=== PATIENT | male | born 1965 | race Caucasian/White ===

== ENCOUNTER → 2019-11-22 08:00 | Outpatient (CLI) | payer OTHER, MEDICAID, SELFPAY ==
--- NOTE | 2019-11-22 | DI.US.S_ITS ---
PROCEDURE: US SCROTUM INDICATIONS: SCROTAL SWELLING AND PAIN TECHNIQUE: Real-time scanning was performed of the scrotum and testicles, with image documentation. Color and pulse Doppler interrogation was performed of both testicles. COMPARISON: None. FINDINGS: Right: Testicle is normal in size at 4.9 x 3 x 2.8 cm, and homogenous in echotexture. Epididymis is normal in overall size and morphology. There is a moderate to large right-sided hydrocele, with estimated volume of 137 cc. Overlying scrotal skin is normal in thickness. Left: Testicle is normal in size at 4.9 x 3 x 5.3 cm, and homogeneous in echotexture. The left epididymis is not seen. There is a very large left-sided hydrocele, with an estimated volume of 540 cc. Overlying scrotal skin is normal in thickness. Doppler: Color and pulse Doppler demonstrate normal and symmetric arterial flow in both testicles. No varicocele is seen. IMPRESSION: Prominent bilateral hydroceles, left larger than right. Normal appearing testicles. Dictated by: Matt Hull M.D. on 11/22/2019 at 8:11 Approved by: Matt Hull M.D. on 11/22/2019 at 8:13
== END ==
PROVIDERS: Referring Provider Student in an Organized Health Care Education/Training Program; Visit Provider Student in an Organized Health Care Education/Training Program
DX: N43.3 Hydrocele, unspecified (principal)
CPT/HCPCS: 76870

== ENCOUNTER → 2023-04-13 16:15 | Outpatient (CLI) | payer OTHER, MEDICAID, SELFPAY ==
--- NOTE | 2023-04-13 | DI.US.S_ITS ---
PROCEDURE: US ARTERIAL DUPLEX LE BI INDICATIONS: PAD / DIABETIC NEUROPATHY TECHNIQUE: Color and pulse Doppler interrogation was performed of both lower extremity arterial systems, with image documentation. COMPARISON: None. FINDINGS: Right lower extremity: Common femoral artery: 145 cm/sec, with triphasic flow. Deep femoral artery: 68 cm/sec, with triphasic flow. Proximal superficial femoral artery: 89 cm/sec, with triphasic flow. Mid superficial femoral artery: 85 cm/sec, with triphasic flow. Distal superficial femoral artery: 67 cm/sec, with triphasic flow. Popliteal artery: 79 cm/sec, with triphasic flow. Posterior tibial artery: 59 cm/sec, with triphasic flow. Anterior tibial artery/dorsalis pedis: 53 cm/sec, with triphasic flow. Ricardo-scale imaging description: Mild diffuse plaque Left lower extremity: Common femoral artery: 72 cm/sec, with triphasic flow. Deep femoral artery: 47 cm/sec, with triphasic flow. Proximal superficial femoral artery: 104 cm/sec, with triphasic flow. Mid superficial femoral artery: 90 cm/sec, with triphasic flow. Distal superficial femoral artery: 93 cm/sec, with triphasic flow. Popliteal artery: 58 cm/sec, with triphasic flow. Posterior tibial artery: 69 cm/sec, with triphasic flow. Anterior tibial artery/dorsalis pedis: 47 cm/sec, with biphasic flow. Ricardo-scale imaging description: Mild diffuse plaque IMPRESSION: No evidence of arterial insufficiency to the bilateral lower extremities. Dictated by: Wilmer Burrell M.D. on 04/14/2023 at 14:48 Approved by: Wilmer Burrell M.D. on 04/14/2023 at 14:50
== END ==
PROVIDERS: Referring Provider Registered Nurse; Visit Provider Registered Nurse
DX: N18.31 Chronic kidney disease, stage 3a (principal); E11.22 Type 2 diabetes mellitus with diabetic chronic kidney disease; I25.10 Atherosclerotic heart disease of native coronary artery without angina pectoris
CPT/HCPCS: 93925